=== PATIENT | female | born 1965 | race Caucasian/White ===

== ENCOUNTER 2019-12-04 10:26 | Emergency (ER) | payer MEDICAID ==
[~2019-12-04] VITALS: Ht 170.2 cm; Wt 80.0 kg
[~2019-12-04 10:26] MED LIST: ASPI81TA52 PO; HYDR-4069 PO; LISI-644 PO; METO50TA16 PO; NO HOME MEDS; SIMV10TA2 PO
[2019-12-04 10:27] VITALS: BP 151/95
[2019-12-04] MEDS ORDERED: HYDROcodone/acetaminophen 5mg/325mg tablet PO ONE (10:40)
[2019-12-04] MEDS ORDERED: ibuprofen tablet 400 MG TABLET PO ONE (10:50)
[2019-12-04 11:46] LABS: BASOPHILS # (AUTO) 0.1 X10'3 (0-0.2); BASOPHILS % (AUTO) 0.4 % (0-1); EOSINOPHILS % (AUTO) 0.1 % (0-6); HEMATOCRIT 37.4 % (35.0-45.0); HEMOGLOBIN 12.2 g/dl (12.0-16.0); LYMPHOCYTES # (AUTO) 1.3 X10'3 (1.1-4.8); LYMPHOCYTES % (AUTO) 10.2 % (21-51); MEAN CORPUSCULAR HEMOGLOBIN 25.7 PG (27.0-31.0); MEAN CORPUSCULAR HGB CONC 32.5 g/dL (33.0-36.5); MEAN PLATELET VOLUME 7.3 FL (7.4-10.4); MONOCYTES # (AUTO) 0.9 X10'3 (0-0.9); NEUTROPHILS # (AUTO) 10.7 X10'3 (1.8-7.7); NEUTROPHILS % (AUTO) 82.3 % (42-75); PLATELET COUNT 287 X10'3 (140-440); RED BLOOD COUNT 4.74 X10'6 (4.20-5.60); RED CELL DISTRIBUTION WIDTH 16.7 % (11.5-14.5)
[2019-12-04 12:01] LABS: ALANINE AMINOTRANSFERASE 20 U/L (12-78); ALBUMIN 3.5 G/DL (3.4-5.0); ALBUMIN/GLOBULIN RATIO 0.7 (1.1-1.5); ALKALINE PHOSPHATASE 115 IU/L (46-116); ANION GAP 9 (8-16); ASPARTATE AMINO TRANSFERASE 16 U/L (10-37); BILIRUBIN,TOTAL 0.4 MG/DL (0.1-1.0); BLOOD UREA NITROGEN 14 MG/DL (7-18); BUN/CREATININE RATIO 14.6 (6.6-38.0); CALCIUM 9.3 MG/DL (8.5-10.1); CHLORIDE 101 MMOL/L (99-107); CREATININE 0.96 MG/DL (0.40-0.90); GLUCOSE 134 MG/DL (70-104); POTASSIUM 3.4 MMOL/L (3.5-5.1); SODIUM 139 MMOL/L (135-145); TOTAL CARBON DIOXIDE 29.2 MMOL/L (24-32); TOTAL PROTEIN 8.4 G/DL (6.4-8.2); eGFR 61 ML/MIN
[2019-12-04] MEDS ORDERED: iohexol 300mg/ml 100ml inj. ONE (12:31)
[2019-12-04] MEDS ORDERED: CEPH250T PO (13:18)
[2019-12-04] MEDS ORDERED: NAPR-56 PO (13:19)
[2019-12-04] MEDS ORDERED: CefTRIAXone 1000mg IM Kit (w/lidocaine diluent) IM ONE (13:20)
== END 2019-12-04 13:40 | disposition home or self-care (01) ==
LOC: ER 10:27
DX: K04.7 Periapical abscess without sinus (principal); Z88.0 Allergy status to penicillin; Z88.5 Allergy status to narcotic agent; Z79.82 Long term (current) use of aspirin; Z79.899 Other long term (current) drug therapy; Z98.890 Other specified postprocedural states
CPT/HCPCS: 36415; 70487; 80053; 85025; 96372; 99285; J0696; Q9967